=== PATIENT | male | born 2000 | race Caucasian/White ===

== ENCOUNTER 2021-05-26 21:41 | Emergency (ER) | payer MEDICAID ==
[2021-05-26] MEDS ORDERED: Lidocaine 2% 20 ML MDV INFILT ONE (21:42)
[2021-05-26] MEDS ORDERED: Cephalexin 500 MG Cap PO ONE (21:42)
--- NOTE | 2021-05-26 22:16 | EDM.PDOC ---
ED HPI GENERAL MEDICAL PROBLEM - General Stated Complaint: BLEEDING/ARM LAC Time Seen by Provider: 05/26/21 22:11 Source of Information: Reports: Patient History Limitations: Reports: No Limitations - History of Present Illness INITIAL COMMENTS - FREE TEXT/NARRATIVE: Has laceration to the left forearm. By a knife accidentally while fixing a fridge at home. Review of Systems - Review of Systems Review Of Systems: Comprehensive ROS is negative, except as noted in HPI. ED EXAM, GENERAL - Physical Exam Exam: See Below Exam Limited By: No Limitations General Appearance: Alert, WD/WN Extremities: Other (9 cm deep laceration to the right forearm,extensor aspect.Stillable to flex and extend hand.Normal radial pulse) ED TRAUMA EXTREMITY PROCEDURES - Laceration/Wound Repair Left Distal Dorsal Other Lac/Wound Length In cm: 9 Appearance: Muscle, Mildly Contaminated Distal NVT: Neuro & Vascular Intact Anesthetic Type: Local Local Anesthesia - Lidocaine (Xylocaine): 2% Plain Local Anesthetic Volume: 5cc Skin Prep: Chlorhexidine (Hibiciens), Saline, Sterile Drape Exploration/Debridement/Repair: Wound Explored, Explored to Base, Minimal D ebridement, Foreign Material Removed Closed With: Sutures Suture Size: 3-0 # of Sutures: 10 Suture Type: Prolene Repaired With: Vicryl Suture Size: 3-0 # of Sutures: 5 Drain Placement: No Sterile Dressing Applied: Nurse Tetanus Status Addressed: No Complications: No Departure - Departure Time of Disposition: 22:16 Disposition: Home, Self-Care 01 Clinical Impression: Forearm laceration Qualifiers: Encounter type: initial encounter Laterality: left Qualified Code(s): S51.812A - Laceration without foreign body of left forearm, initial encounter - Discharge Information Instructions: Laceration Care, Adult Referrals: PCP,None [Primary Care Provider] - Additional Instructions: 1 week to remove sutures - Problem List & Annotations (1) Forearm laceration SNOMED Code(s): 659203999 Code(s): S51.819A - LACERATION WITHOUT FOREIGN BODY OF UNSP FOREARM, INIT ENCNTR Status: Acute Current Visit: No Qualifiers: Encounter type: initial encounter Laterality: left Qualified Code(s): S51.812A - Laceration without foreign body of left forearm, initial encounter - Problem List Review Problem List Initiated/Reviewed/Updated: Yes - Assessment/Plan Plan: Prophylactic abx-Keflex. Remove sutures in 1 week.
== END 2021-05-26 22:33 | disposition home or self-care (01) ==
LOC: FB.ED 21:41
DX: S51.812A Laceration without foreign body of left forearm, initial encounter (principal); W26.0XXA Contact with knife, initial encounter
CPT/HCPCS: 12004; 99282; A9270